=== PATIENT | male | born 1945 | race Caucasian/White ===

== ENCOUNTER 2022-09-25 13:05 | Emergency (ER) | payer OTHER, MEDICARE ==
[2022-09-25 13:29] VITALS: BP 137/92; PULSE 78; RESP 18; TEMP 97.6; BMI 25.6
== END 2022-09-25 14:15 | disposition home or self-care (01) ==
LOC: FER 13:05
DX: S69.92XA Unspecified injury of left wrist, hand and finger(s), initial encounter (principal); M79.645 Pain in left finger(s); W19.XXXA Unspecified fall, initial encounter
CPT/HCPCS: 73140-TC-LT-FY; 99283-25

== ENCOUNTER 2023-06-13 09:28 | Inpatient (IN) | payer MEDICARE, OTHER ==
[2023-06-13 09:54] VITALS: BMI 24.8
[2023-06-13] MEDS ORDERED: ALBUTEROL SO4 2.5/IPRATROPIUM 0.5 INH SOL 3 ML VIAL.NEB. NEB ONE ×2 (09:54→10:34)
[2023-06-13] MEDS ORDERED: methylPREDNISolone NA SUCC 125 MG/2 ML VIAL IVPB ONE (09:55)
[2023-06-13] MEDS ORDERED: SODIUM CHLORIDE 500 ML IV STA (10:00)
[2023-06-13] MEDS ORDERED: methylPREDNISolone NA SUCC 125 MG/2 ML VIAL ONE (10:34)
[2023-06-13 10:37] LABS: BASO % 0.2 % (0-2.0); EOS % 0.8 % (0-4.5); HEMATOCRIT 51.9 % (35.4-49); HEMOGLOBIN 16.6 GM/dL (11.7-16.9); MCH 29.9 pg (25.7-33.7); MEAN CELL VOLUME 93.5 fl (80-96); MEAN PLT VOLUME 8.4 fl (7.5-11.1); MONO % 2.9 % (3.8-10.2); NEUT % 81.1 % (42.8-82.8); PLATELET COUNT 284 10^3/uL (134-434); RBC 5.55 M/mm3 (4.00-5.60); RDW 14.6 % (11.9-15.9); VENOUS BASE EXCESS -15.2 mmol/L (-2-2); VENOUS O2 SATURATION 34.3 % (70-80); VENOUS PCO2 57.2 mmHg (38-52); WHITE BLOOD COUNT 6.6 K/mm3 (4.0-10.0)
[2023-06-13 10:41] LABS: VENOUS PH 7.06 (7.310-7.410)
[2023-06-13 11:02] LABS: ALBUMIN 3.1 g/dl (3.4-5.0); BLOOD UREA NITROGEN 32.6 mg/dL (7-18); CALCIUM 8.5 mg/dL (8.5-10.1)
[2023-06-13 11:05] LABS: CREATININE 1.9 mg/dL (0.55-1.3)
[2023-06-13 11:06] LABS: TOT PROT 6.5 g/dl (6.4-8.2)
[2023-06-13 11:07] LABS: BILIRUBIN,TOTAL 0.4 mg/dL (0.2-1)
[2023-06-13] MEDS ORDERED: levETIRAcetam 500 MG/5 ML INJECTION VIAL IVPB ONE ×2 (11:59→13:49)
[2023-06-13] MEDS ORDERED: ACETAMINOPHEN 1000 MG/100 ML BAG IVPB ONE (13:16)
[2023-06-13] MEDS ORDERED: ACETAMINOPHEN 500 MG TABLET (FP) PO ONE (13:45)
[2023-06-13] MEDS ORDERED: ACETAMINOPHEN 500 MG TABLET (FP) ONE (13:50)
[2023-06-13 14:13] LABS: LACTIC ACID 6.2 mmol/L (0.4-2.0)
[2023-06-13 14:46] LABS: VENOUS O2 SATURATION 72.3 % (70-80); VENOUS PCO2 43.2 mmHg (38-52); VENOUS PH 7.258 (7.310-7.410)
[2023-06-13] MEDS ORDERED: ALBUTEROL SO4 HFA INHALER IH PRN (16:03)
[2023-06-13] MEDS ORDERED: CEFTRIAXONE 1,000 MG in DEXTROSE 5%-WATER - 50 ML IVPB ONE (16:04)
[2023-06-13] MEDS ORDERED: LACTATED RINGERS SOLUTION 1,000 ML/1,000 ML INFUS.BAG IV SCH (16:15)
[2023-06-13] MEDS ORDERED: AZITHROMYCIN IVPB 500 MG in DEXTROSE 5%-WATER - 250 ML IVPB SCH (16:15)
[2023-06-13] MEDS: ALBUTEROL SO4 2.5/IPRATROPIUM 0.5 INH SOL 3 ML VIAL.NEB. NEB SCH ×2 (16:27→21:14)
[2023-06-13] MEDS ORDERED: methylPREDNISolone NA SUCC 40 MG/1 ML VIAL ONE (17:22)
[2023-06-13] MEDS: methylPREDNISolone NA SUCC 40 MG/1 ML VIAL IVPUSH SCH (17:29)
[2023-06-13 21:02] LABS: EPI CELLS 32 /uL (0-25.1); HYALINE CASTS 38 /uL (0-3.1); URINE APPEARANCE CLOUDY; URINE BACTERIA 1 /uL (0-1359); URINE BILIRUBIN NEGATIVE (NEGATIVE); URINE COLOR DK YELLOW; URINE GLUCOSE (UA) NEGATIVE (NEGATIVE); URINE KETONE TRACE (NEGATIVE); URINE LEUK ESTERASE NEGATIVE (NEGATIVE); URINE NITRITE NEGATIVE (NEGATIVE); URINE PROTEIN 1+ (NEGATIVE); URINE UROBILINOGEN 0.2 mg/dL (0.2-1.0)
[2023-06-13 21:27] LABS: URINE WBC 70.8 /uL (0-25.8)
[2023-06-13] MEDS ORDERED: ASPIRIN/DIPYRIDAMOLE 25 MG/200 MG CAPSULE ONE (22:02)
[2023-06-13] MEDS ORDERED: levETIRAcetam 500 MG TABLET (FP) PO ONE (22:02)
[2023-06-13] MEDS ORDERED: HEPARIN NA (PORCINE) 5,000 UNITS/ML 1ML VIAL ONE (22:03)
[2023-06-13] MEDS: HEPARIN NA (PORCINE) 5,000 UNITS/ML 1ML VIAL SQ SCH (22:07)
[2023-06-13] MEDS: levETIRAcetam 500 MG TABLET (FP) PO SCH (22:07)
[2023-06-13] MEDS ORDERED: BENZOCAINE/MENTH/CETYLPYRD CL 1 EACH LOZENGE MM ONE (22:07)
[2023-06-13] MEDS: ASPIRIN/DIPYRIDAMOLE 25 MG/200 MG CAPSULE PO SCH (22:07)
[2023-06-14] MEDS: ALBUTEROL SO4 2.5/IPRATROPIUM 0.5 INH SOL 3 ML VIAL.NEB. NEB SCH ×7 (01:01→23:26)
[2023-06-14] MEDS ORDERED: ALBUTEROL SO4 2.5/IPRATROPIUM 0.5 INH SOL 3 ML VIAL.NEB. NEB ONE (01:05)
[2023-06-14] MEDS ORDERED: methylPREDNISolone NA SUCC 40 MG/1 ML VIAL ONE (01:05)
[2023-06-14] MEDS: methylPREDNISolone NA SUCC 40 MG/1 ML VIAL IVPUSH SCH ×2 (01:16→09:53)
[2023-06-14] MEDS: HEPARIN NA (PORCINE) 5,000 UNITS/ML 1ML VIAL SQ SCH ×3 (06:23→22:02)
[2023-06-14 07:02] LABS: HEMATOCRIT 46.3 % (35.4-49); HEMOGLOBIN 14.9 GM/dL (11.7-16.9); MCH 29.2 pg (25.7-33.7); MCHC 32.2 g/dl (32.0-35.9); MEAN CELL VOLUME 90.9 fl (80-96); PLATELET COUNT 225 10^3/uL (134-434); RBC 5.09 M/mm3 (4.00-5.60); RDW 14.5 % (11.9-15.9); WHITE BLOOD COUNT 13.6 K/mm3 (4.0-10.0)
[2023-06-14 07:21] LABS: POTASSIUM 4.5 mmol/L (3.5-5.1)
[2023-06-14 07:25] LABS: ALBUMIN 2.9 g/dl (3.4-5.0); BLOOD UREA NITROGEN 47.2 mg/dL (7-18); CALCIUM 7.5 mg/dL (8.5-10.1); MAGNESIUM 2.6 mg/dL (1.8-2.4)
[2023-06-14 07:28] LABS: CREATININE 1.6 mg/dL (0.55-1.3); PHOSPHOROUS 3.7 mg/dL (2.5-4.9)
[2023-06-14 07:30] LABS: BILIRUBIN,TOTAL 0.5 mg/dL (0.2-1); TOT PROT 6.2 g/dl (6.4-8.2)
[2023-06-14] MEDS: LEVOTHYROXINE NA 50 MCG TABLET (FP) PO SCH (09:47)
[2023-06-14] MEDS: levETIRAcetam 500 MG TABLET (FP) PO SCH ×2 (09:52→22:01)
[2023-06-14] MEDS: CEFTRIAXONE 1 GM in DEXTROSE 5%-WATER - 50 ML IVPB SCH (09:53)
[2023-06-14] MEDS: PANTOPRAZOLE 20 MG TABLET PO SCH (09:53)
[2023-06-14] MEDS: AZITHROMYCIN IVPB 500 MG/250 ML BAG IVPB SCH (09:54)
[2023-06-14] MEDS ORDERED: AZITHROMYCIN IVPB 250 MG in DEXTROSE 5%-WATER - 250 ML IVPB SCH (10:00)
[2023-06-14] MEDS ORDERED: PATIENT'S OWN MEDICATION (NON-FORMULARY) (Omeprazole 20 MG Capsule.Dr) PO SCH (10:00)
[2023-06-14] MEDS ORDERED: predniSONE 5 MG TABLET (UD) PO SCH (10:00)
[2023-06-14 10:55] LABS: ANISOCYTOSIS 0; HELMET CELLS 0; HOWELL-JOLLY BODIES 0; MACROCYTOSIS 0; OVALOCYTE 0; ROULEAU 0; SICKELED CELLS 0; TARGET CELLS 0; TEAR DROP CELLS 0; TOXIC GRANULATION 0
[2023-06-14] MEDS ORDERED: BENZOCAINE/MENTH/CETYLPYRD CL 1 EACH LOZENGE MM PRN (14:10)
[2023-06-14] MEDS ORDERED: ACETAMINOPHEN 325 MG TABLET (FP) PO PRN (14:11)
[2023-06-14] MEDS: ASPIRIN/DIPYRIDAMOLE 25 MG/200 MG CAPSULE PO SCH (15:48)
[2023-06-14] MEDS: DOXAZOSIN MESYLATE 4 MG TABLET PO SCH (15:51)
[2023-06-14] MEDS: BUDESONIDE/FORMETEROL FUMARATE 160/4.5 mcg INHALER IH SCH ×2 (15:53→22:03)
[2023-06-14] MEDS: TIOTROPIUM BROMIDE 2.5 MCG (SPIRIVA) RESPIMAT INHALER IH SCH (18:17)
[2023-06-14] MEDS: ATORVASTATIN CA 20 MG TABLET (FP) PO SCH (22:01)
[2023-06-14] MEDS: MONTELUKAST NA 10 MG TABLET PO SCH (22:01)
[2023-06-14 22:32] VITALS: RESP 18
[2023-06-15] MEDS: methylPREDNISolone NA SUCC 40 MG/1 ML VIAL IVPUSH SCH ×4 (01:38→21:43)
[2023-06-15] MEDS: ALBUTEROL SO4 2.5/IPRATROPIUM 0.5 INH SOL 3 ML VIAL.NEB. NEB SCH ×3 (04:47→12:25)
[2023-06-15] MEDS: HEPARIN NA (PORCINE) 5,000 UNITS/ML 1ML VIAL SQ SCH ×3 (05:47→21:43)
[2023-06-15] MEDS: LEVOTHYROXINE NA 50 MCG TABLET (FP) PO SCH (06:14)
[2023-06-15 08:27] LABS: HEMATOCRIT 38.6 % (35.4-49); HEMOGLOBIN 13.1 GM/dL (11.7-16.9); MCH 29.9 pg (25.7-33.7); MCHC 33.8 g/dl (32.0-35.9); MEAN CELL VOLUME 88.6 fl (80-96); MEAN PLT VOLUME 8.6 fl (7.5-11.1); PLATELET COUNT 174 10^3/uL (134-434); RBC 4.36 M/mm3 (4.00-5.60); RDW 14.6 % (11.9-15.9); WHITE BLOOD COUNT 8.8 K/mm3 (4.0-10.0)
[2023-06-15 08:47] LABS: CHLORIDE 105 mmol/L (98-107); POTASSIUM 3.7 mmol/L (3.5-5.1); SODIUM 139 mmol/L (136-145)
[2023-06-15 08:50] LABS: ANION GAP 6 mmol/L (4-13); CO2 28 mmol/L (21-32)
[2023-06-15 08:51] LABS: BLOOD UREA NITROGEN 29.4 mg/dL (7-18); GLUCOSE,RANDOM 111 mg/dL (74-106)
[2023-06-15 08:54] LABS: CALCIUM 6.7 mg/dL (8.5-10.1); CREATININE 0.7 mg/dL (0.55-1.3)
[2023-06-15] MEDS ORDERED: CALCIUM GLUC IN NACL, ISO-OSM 1 GM/50 ML BAG IVPB ONE (09:16)
[2023-06-15] MEDS: PANTOPRAZOLE 20 MG TABLET PO SCH (10:06)
[2023-06-15] MEDS: levETIRAcetam 500 MG TABLET (FP) PO SCH ×2 (10:06→21:42)
[2023-06-15] MEDS: CEFTRIAXONE 1 GM in DEXTROSE 5%-WATER - 50 ML IVPB SCH (10:07)
[2023-06-15] MEDS: TIOTROPIUM BROMIDE 2.5 MCG (SPIRIVA) RESPIMAT INHALER IH SCH (10:17)
[2023-06-15] MEDS: BUDESONIDE/FORMETEROL FUMARATE 160/4.5 mcg INHALER IH SCH ×2 (10:18→21:43)
[2023-06-15] MEDS: ASPIRIN/DIPYRIDAMOLE 25 MG/200 MG CAPSULE PO SCH ×3 (11:11→21:42)
[2023-06-15] MEDS: DOXAZOSIN MESYLATE 4 MG TABLET PO SCH ×2 (11:11→21:42)
[2023-06-15] MEDS: AZITHROMYCIN IVPB 500 MG/250 ML BAG IVPB SCH (11:11)
[2023-06-15 11:26] LABS: ANISOCYTOSIS 0; HELMET CELLS 0; HOWELL-JOLLY BODIES 0; MACROCYTOSIS 0; OVALOCYTE 0; ROULEAU 0; SICKELED CELLS 0; TARGET CELLS 0; TEAR DROP CELLS 0; TOXIC GRANULATION 0
[2023-06-15] MEDS ORDERED: ALBUTEROL SO4 0.083% IH SOL 2.5 MG/3 ML VIAL.NEB. NEB PRN (12:51)
[2023-06-15] MEDS: ATORVASTATIN CA 20 MG TABLET (FP) PO SCH (21:42)
[2023-06-15] MEDS: MONTELUKAST NA 10 MG TABLET PO SCH (21:42)
[2023-06-16] MEDS: LEVOTHYROXINE NA 50 MCG TABLET (FP) PO SCH (06:19)
[2023-06-16] MEDS: HEPARIN NA (PORCINE) 5,000 UNITS/ML 1ML VIAL SQ SCH ×3 (06:19→21:47)
[2023-06-16 09:08] LABS: BASO % 0.2 % (0-2.0); HEMATOCRIT 38.5 % (35.4-49); HEMOGLOBIN 12.4 GM/dL (11.7-16.9); LYMPH % 5.9 % (8-40); MCH 29.1 pg (25.7-33.7); MCHC 32.3 g/dl (32.0-35.9); MEAN PLT VOLUME 8.9 fl (7.5-11.1); MONO % 7.1 % (3.8-10.2); NEUT % 86.8 % (42.8-82.8); PLATELET COUNT 165 10^3/uL (134-434); RBC 4.28 M/mm3 (4.00-5.60); RDW 14.1 % (11.9-15.9); WHITE BLOOD COUNT 9.6 K/mm3 (4.0-10.0)
[2023-06-16 09:16] LABS: POTASSIUM 4.1 mmol/L (3.5-5.1)
[2023-06-16 09:21] LABS: CREATININE 0.6 mg/dL (0.55-1.3)
[2023-06-16] MEDS: levETIRAcetam 500 MG TABLET (FP) PO SCH ×2 (11:02→21:46)
[2023-06-16] MEDS: methylPREDNISolone NA SUCC 40 MG/1 ML VIAL IVPUSH SCH (11:02)
[2023-06-16] MEDS: PANTOPRAZOLE 20 MG TABLET PO SCH (11:02)
[2023-06-16] MEDS: CEFTRIAXONE 1 GM in DEXTROSE 5%-WATER - 50 ML IVPB SCH (11:03)
[2023-06-16] MEDS: TIOTROPIUM BROMIDE 2.5 MCG (SPIRIVA) RESPIMAT INHALER IH SCH (11:05)
[2023-06-16] MEDS: BUDESONIDE/FORMETEROL FUMARATE 160/4.5 mcg INHALER IH SCH ×2 (11:05→21:51)
[2023-06-16 11:43] LABS: ALBUMIN 2.6 g/dl (3.4-5.0)
[2023-06-16 11:45] LABS: BILIRUBIN,DIRECT 0.1 mg/dL (0.0-0.2)
[2023-06-16 11:47] LABS: BILIRUBIN,TOTAL 0.4 mg/dL (0.2-1); TOT PROT 5.4 g/dl (6.4-8.2)
[2023-06-16] MEDS: ASPIRIN/DIPYRIDAMOLE 25 MG/200 MG CAPSULE PO SCH ×2 (12:13→21:46)
[2023-06-16] MEDS: AZITHROMYCIN IVPB 500 MG/250 ML BAG IVPB SCH (12:14)
[2023-06-16] MEDS ORDERED: MAGNESIUM HYDROX 2400MG/30ML ORAL SUSPENSION 30 ML CUP PO ONE (12:33)
[2023-06-16] MEDS ORDERED: BISACODYL 10 MG SUPP.RECT PR PRN (12:34)
[2023-06-16] MEDS ORDERED: BISACODYL 5 MG TABLET.DR (FP) PO ONE (12:35)
[2023-06-16 15:25] LABS: MAGNESIUM 2.9 mg/dL (1.8-2.4)
[2023-06-16 15:33] LABS: N-TERMINAL BNP 362.3 pg/ml (5-450)
[2023-06-16] MEDS: ATORVASTATIN CA 20 MG TABLET (FP) PO SCH (21:46)
[2023-06-16] MEDS: MONTELUKAST NA 10 MG TABLET PO SCH (21:46)
[2023-06-16] MEDS: DOXAZOSIN MESYLATE 4 MG TABLET PO SCH (21:46)
[2023-06-16] MEDS ORDERED: SENNOSIDES/DOCUSATE COMBO (SENNA PLUS) TABLET (UD) PO SCH (22:00)
[2023-06-17] MEDS: HEPARIN NA (PORCINE) 5,000 UNITS/ML 1ML VIAL SQ SCH ×2 (06:08→14:44)
[2023-06-17] MEDS: LEVOTHYROXINE NA 50 MCG TABLET (FP) PO SCH (06:08)
[2023-06-17 09:01] LABS: BASO % 0.2 % (0-2.0); EOS % 0.6 % (0-4.5); HEMATOCRIT 38.4 % (35.4-49); HEMOGLOBIN 12.4 GM/dL (11.7-16.9); LYMPH % 16.3 % (8-40); MCH 28.9 pg (25.7-33.7); MCHC 32.3 g/dl (32.0-35.9); MEAN CELL VOLUME 89.4 fl (80-96); MONO % 9.7 % (3.8-10.2); NEUT % 73.2 % (42.8-82.8); PLATELET COUNT 166 10^3/uL (134-434); RDW 14.3 % (11.9-15.9); WHITE BLOOD COUNT 6.5 K/mm3 (4.0-10.0)
[2023-06-17 09:29] LABS: POTASSIUM 3.8 mmol/L (3.5-5.1)
[2023-06-17] MEDS ORDERED: methylPREDNISolone NA SUCC 40 MG/1 ML VIAL IVPUSH SCH (10:00)
[2023-06-17] MEDS: levETIRAcetam 500 MG TABLET (FP) PO SCH (10:07)
[2023-06-17] MEDS: CEFTRIAXONE 1 GM in DEXTROSE 5%-WATER - 50 ML IVPB SCH (10:07)
[2023-06-17] MEDS: PANTOPRAZOLE 20 MG TABLET PO SCH (10:07)
[2023-06-17] MEDS: ASPIRIN/DIPYRIDAMOLE 25 MG/200 MG CAPSULE PO SCH (10:07)
[2023-06-17] MEDS: BUDESONIDE/FORMETEROL FUMARATE 160/4.5 mcg INHALER IH SCH (10:08)
[2023-06-17] MEDS: TIOTROPIUM BROMIDE 2.5 MCG (SPIRIVA) RESPIMAT INHALER IH SCH (10:09)
[2023-06-17 10:12] LABS: BLOOD UREA NITROGEN 27.7 mg/dL (7-18); CALCIUM 7.6 mg/dL (8.5-10.1)
[2023-06-17 10:13] LABS: CREATININE 0.6 mg/dL (0.55-1.3)
[2023-06-17] MEDS: AZITHROMYCIN IVPB 500 MG/250 ML BAG IVPB SCH (10:43)
[2023-06-17 15:27] VITALS: BP 130/69; PULSE 94; TEMP 97.5
== END 2023-06-17 15:25 | disposition home health service (06) | DRG 871 ==
LOC: JER 09:28 → INTOOBSV 10:01 → UNDOADMOB 10:01 → JERBED 10:01 → J7W 06-14 08:30 → OBSVTOIN 06-14 09:04
PROVIDERS: ADMIT Internal Medicine; ATTEND Nurse Practitioner
PROC: 5A09457 Assistance with Respiratory Ventilation, 24-96 Consecutive Hours, Continuous Positive Airway Pressure (ICD-10-PCS; principal; 2023-06-13)
DX: A41.89 Other specified sepsis (principal); J18.9 Pneumonia, unspecified organism; U07.1 COVID-19; J96.01 Acute respiratory failure with hypoxia; N17.9 Acute kidney failure, unspecified; J45.901 Unspecified asthma with (acute) exacerbation; E87.20 Acidosis, unspecified; J45.909 Unspecified asthma, uncomplicated; R41.82 Altered mental status, unspecified; E03.9 Hypothyroidism, unspecified; E83.51 Hypocalcemia; N40.0 Benign prostatic hyperplasia without lower urinary tract symptoms; E78.5 Hyperlipidemia, unspecified; G40.909 Epilepsy, unspecified, not intractable, without status epilepticus; Z86.73 Personal history of transient ischemic attack (TIA), and cerebral infarction without residual deficits
CPT/HCPCS: 0241U-QW; 36415; 70450-TC; 71045-TC-FY; 71250-TC; 72125-TC; 72170-TC-FY; 74176-TC; 80048; 80053; 80076; 81003; 82550; 82553; 82803; 82962; 83605; 83735; 83880; 84100; 84484; 85025; 87040; 87086; 87635; 87899; 93005; 93010; 94010; 94640; 94660; 94761; 97116-GP; 97161-GP; 99291; G0378; J1644